=== PATIENT | male | born 1990 | race African-American/Black ===

== ENCOUNTER 2020-06-12 23:23 | Emergency (ER) | payer BC, OTHER ==
--- NOTE | 2020-06-13 01:53 | EDPHYS ---
Physician Documentation [facility] Name: Brannon Melendez Age: 29 yrs Sex: Male : 1990 Arrival Date: 06/12/2020 Time: 23:26 Bed 4 Private MD: ED Physician Robert Amos HPI: 06/12 23:45 This 29 yrs old Black Male presents to ER via Ambulatory with complaints of Fall jmm Injury, RIB PAIN. 23:45 Details of fall: The patient fell from a height, horse. Onset: The symptoms/episode jmm began/occurred acutely, just prior to arrival. Associated injuries: The patient sustained injury to the chest, injury to the abdomen, specifically the right upper quadrant. Associated injuries: The patient sustained injury to the chest, specifically the right lateral anterior chest and right lateral posterior chest. The patient has not experienced similar symptoms in the past. Patient states he fell off a horse. Denies other injury. . Historical: - Allergies: 23:38 No Known Allergies; lp1 - Home Meds: 23:38 None [Active]; lp1 - PMHx: 23:38 None; lp1 - PSHx: 23:38 None; lp1 - Immunization history:: Adult Immunizations up to date. - Social history:: Smoking status: Patient reports the use of cigarette tobacco products, cigars, Reported history of juuling and/or vaping. - Immunization history: Last tetanus immunization: - up to date. ROS: 23:45 Constitutional: Negative for fever, chills, and weight loss, Neck: Negative for injury, jmm pain, and swelling, Cardiovascular: Negative for chest pain, palpitations, and edema, Respiratory: Negative for shortness of breath, cough, wheezing, and pleuritic chest pain. 23:45 Abdomen/GI: Positive for abdominal pain. 23:45 Back: Positive for pain with movement. 23:45 All other systems are negative. Exam: 23:45 Eyes: EOMI, no conjunctival erythema appreciated ENT: Moist Mucus Membranes jmm 23:45 Cardiovascular: Regular rate and rhythm. No edema appreciated Respiratory: Normal respirations, no respiratory distress appreciated 23:45 Skin: General appearance color normal MS/ Extremity: Moves all extremities, no obvious deformities appreciated, no edema noted to the lower extremities Neuro: Awake and alert, normal gait Psych: Behavior is normal, Mood is normal, Patient is cooperative and pleasant 23:45 Constitutional: The patient appears in no acute distress, alert, awake. 23:45 Head/face: Exam is negative for acute changes, covarrubias signs, raccoon eyes. 23:45 Neck: C-spine: appears grossly normal, no vertebral tenderness, no crepitus. 23:45 Chest/axilla: Inspection: normal, Palpation: tenderness, that is moderate, of the right lateral anterior chest and right lateral posterior chest. 23:45 Abdomen/GI: Inspection: abdomen appears normal, Bowel sounds: normal, Palpation: soft, mild abdominal tenderness, in the right upper quadrant. 23:45 Back: pain, is absent, ROM is normal, CVA tenderness, is absent. Vital Signs: 23:39 BP 138 / 79; Pulse 82; Resp 18; Temp 98.7(TE); Pulse Ox 99% on R/A; Weight 117.93 kg lp1 (R); Height 5 ft. 8 in. (172.72 cm); Pain 6/10; 23:39 Body Mass Index 39.53 (117.93 kg, 172.72 cm) lp1 Hussein Coma Score: 06/13 00:03 Eye Response: spontaneous(4). Verbal Response: oriented(5). Motor Response: obeys rv commands(6). Total: 15. Trauma Score (Adult): 00:03 Eye Response: spontaneous(1); Verbal Response: oriented(1); Motor Response: obeys rv commands(2); Systolic BP: > 89 mm Hg(4); Respiratory Rate: 10 to 29 per min(4); Hussein Score: 15; Trauma Score: 12 MDM: 06/12 23:[address] [facility] 06/13 00:52 Data reviewed: vital signs, nurses notes. Transition of care: After a detail discussion megan of the patient's case, care is transferred to Robert Amos MD. 06/12 23:45 Order name: CT Traumagram (Head C Spine CAP W Con) [facility] 06/12 23:45 Order name: Saline Lock; Complete Time: 00:05 megan Administered Medications: No medications were administered Disposition: 04:52 Co-signature as Attending Physician, Robert Amos MD. mh7 Disposition: 06/13/20 01:52 Discharged to Home. Impression: Fall from Horse, Multiple Contusions. - Condition is Stable. - Discharge Instructions: Contusion, [id number], Chest Contusion, [id number]. - Prescriptions for Ibuprofen 800 mg Oral Tablet - take 1 tablet by ORAL route every 8 hours As needed take with food; 15 tablet. - Medication Reconciliation Form, Thank You Letter, Antibiotic Education, Prescription Opioid Use form. - Work release form (06/13/20 12:19). ss - Follow up: Private Physician; When: 1 - 2 days; Reason: Worsening of condition, Recheck today's complaints, Continuance of care, Re-evaluation by your physician. - Problem is new. - Symptoms have improved. Signatures: Dispatcher [employer] EDMS Mario Barreto PA PA jmm Pena, Laura RN RN lp1 Marlnei Singh RN RN Bryon George RN RN rv Holmes, Maurice, MD MD 7 Isabel Can RN ss Corrections: (The following items were deleted from the chart) 02:00 01:52 06/13/2020 01:52 Discharged to Home. Impression: Fall from Horse; Multiple ea Contusions. Condition is Stable. Forms are Medication Reconciliation Form, Thank You Letter, Antibiotic Education, Prescription Opioid Use. Follow up: Private Physician; When: 1 - 2 days; Reason: Worsening of condition, Recheck today's complaints, Continuance of care, Re-evaluation by your physician. Problem is new. Symptoms have improved. mh7
--- NOTE | 2020-06-13 01:53 | ER ---
Nurse's Notes [facility] Name: Brannon Melendez Age: 29 yrs Sex: Male : 1990 Arrival Date: 06/12/2020 Time: 23:26 Bed 4 Private MD: Diagnosis: Fall from Horse;Multiple Contusions Presentation: 06/12 23:36 Chief complaint: Patient states: Thrown off of horse about 2100 last night; Reports lp1 pain to right side of abdomen and chest, states hitting solid ground; Denies hitting head, no LOC, no other complaints. Care prior to arrival: None. 23:36 Acuity: JAN 2 lp1 23:36 Method Of Arrival: Ambulatory lp1 23:39 Coronavirus screen: Client denies travel out of the [place] in the last 14 days. At this lp1 time, the client does not indicate any symptoms associated with coronavirus-19. Ebola Screen: No symptoms or risks identified at this time. Initial Sepsis Screen: Does the patient meet any 2 criteria? No. Patient's initial sepsis screen is negative. Does the patient have a suspected source of infection? No. Patient's initial sepsis screen is negative. Risk Assessment: Do you want to hurt yourself or someone else? Patient reports no desire to harm self or others. Onset of symptoms was June 11, 2020 at 21:00. 06/13 00:03 Mechanism of Injury: Fall from a horse. Trauma event details: Injury occurred in the [facility], Injury occurred: at home. Injury occurred: June 13, 2020 Injury occurred at: 23:00. Trauma Activation: Alert Physician: ED Physician; Name: denisse; Notified At: ; Arrived At: Physician: General Surgeon; Name: ; Notified At: ; Arrived At: Physician: Radiology; Name: ; Notified At: ; Arrived At: Physician: Respiratory; Name: ; Notified At: ; Arrived At: Physician: Lab; Name: ; Notified At: ; Arrived At: Historical: - Allergies: 06/12 23:38 No Known Allergies; lp1 - Home Meds: 23:38 None [Active]; lp1 - PMHx: 23:38 None; lp1 - PSHx: 23:38 None; lp1 - Immunization history:: Adult Immunizations up to date. - Social history:: Smoking status: Patient reports the use of cigarette tobacco products, cigars, Reported history of juuling and/or vaping. - Immunization history: Last tetanus immunization: - up to date. Screenin:39 Abuse screen: Denies threats or abuse. Denies injuries from another. Nutritional lp1 screening: No deficits noted. Tuberculosis screening: No symptoms or risk factors identified. Fall Risk None identified. Primary Survey: 06/13 00:02 NO uncontrolled hemorrhage observed. Breathing/Chest: Respiratory pattern: regular. rv Circulation: Cardiac rhythm: sinus rhythm. Disability Alert. Exposure/Environment: All clothing and personal items were removed. Forensic evidence collection is not deemed to be indicated at this time. Items placed in patient belonging bag. There is no evidence of uncontrolled external bleeding. A warming method has been applied: A warm blanket has been provided to the patient. 01:00 Reassessment Airway Airway Patent Breathing/Chest Respiratory pattern Regular ea Respiratory effort Spontaneous Unlabored Disability Alert. Assessment: 00:01 General: Appears uncomfortable, Behavior is calm, cooperative. Pain: Complains of pain rv in rib pain. Neuro: Level of Consciousness is awake, alert, obeys commands, Oriented to person, place, time, situation. Cardiovascular: Patient's skin is warm and dry. Respiratory: Airway is patent Respiratory effort is even, unlabored, Breath sounds are clear bilaterally. Derm: Skin is intact. 00:20 Reassessment: Patient and/or family updated on plan of care and expected duration. Pain ea level reassessed. Patient is alert, oriented x 3, equal unlabored respirations, skin warm/dry/pink. Pt taken to CT. 00:35 Reassessment: Patient and/or family updated on plan of care and expected duration. Pain ea level reassessed. Patient is alert, oriented x 3, equal unlabored respirations, skin warm/dry/pink. Returned from CT. 01:59 Reassessment: Patient and/or family updated on plan of care and expected duration. Pain ea level reassessed. Patient is alert, oriented x 3, equal unlabored respirations, skin warm/dry/pink. Discharge instruction given to patient, verbalized the understanding of instruction. Pt left ED ambulatory tolerating well. Vital Signs: 06/12 23:39 BP 138 / 79; Pulse 82; Resp 18; Temp 98.7(TE); Pulse Ox 99% on R/A; Weight 117.93 kg lp1 (R); Height 5 ft. 8 in. (172.72 cm); Pain 6/10; 23:39 Body Mass Index 39.53 (117.93 kg, 172.72 cm) lp1 Hussein Coma Score: 06/13 00:03 Eye Response: spontaneous(4). Verbal Response: oriented(5). Motor Response: obeys rv commands(6). Total: 15. Trauma Score (Adult): 00:03 Eye Response: spontaneous(1); Verbal Response: oriented(1); Motor Response: obeys rv commands(2); Systolic BP: > 89 mm Hg(4); Respiratory Rate: 10 to 29 per min(4); Green Score: 15; Trauma Score: 12 ED Course: 06/12 23:26 Patient arrived in ED. cf2 23:38 Triage completed. lp1 23:39 Arm band placed on right wrist. lp1 23:43 Mario Barreto PA is PHCP. [facility] 23:43 Robert Amos MD is Attending Physician. [facility] 23:50 Inserted saline lock: in right antecubital area, using aseptic technique. rv 06/13 00:01 Bryon Canales, SIMONE is Primary Nurse. rv 00:03 Patient has correct armband on for positive identification. Placed in gown. Bed in low rv position. Call light in reach. gambling monitor on. Pulse ox on. NIBP on. 00:03 Patient maintains SpO2 saturation greater than 95% on room air. rv 00:03 Thermoregulation: warm blanket given to patient. rv 00:44 CT Traumagram (Head C Spine CAP W Con) In Process Unspecified. EDMS 01:58 No provider procedures requiring assistance completed. IV discontinued, intact, ea bleeding controlled, No redness/swelling at site. Pressure dressing applied. Administered Medications: No medications were administered Intake: :59 PO: 0ml; Total: 0ml. ea Outcome: 01:52 Discharge ordered by . mhMic 01:59 Discharged to home ambulatory. ea 01:59 Condition: stable 01:59 Discharge instructions given to patient, Instructed on discharge instructions, follow up and referral plans. medication usage, Demonstrated understanding of instructions, follow-up care, medications, Prescriptions given X 1. 01:59 Patient's length of stay was not longer than 2 hours. ea 02:00 Patient left the ED. ea Signatures: Dispatcher [employer] EDMS Mario Barreto PA PA jmm Pena, Laura, RN RN lp1 Marleni Singh RN RN Bryon George RN RN Zac Wu 2 Robert Amos MD MD mh7
[2020-06-13 02:05] VITALS: BP 138/79; TEMP 98.7; O2SAT 99
--- NOTE | 2020-06-13 11:51 | RAD REPORT ---
EXAM DESCRIPTION: CT - Head C Spine Loi Rogers - 06/13/2020 8:59 am CLINICAL HISTORY: Fall off horse, right sided pain COMPARISON: None. TECHNIQUE: CT HEAD AND CERVICAL SPINE WITHOUT CONTRAST AND CT CHEST ABDOMEN PELVIS WITH CONTRAST on 06/12/2020 11:45 PM FOREIGN EXCHANGE STUDENT COORDINATOR This exam was performed according to our departmental dose-optimization program, which includes autom ated exposure control, adjustment of the mA and/or kV according to patient size and/or use of iterati ve reconstruction technique. FINDINGS: Brain: There is no acute hemorrhage, mass effect or midline shift. Castillo-white differentiat ion is preserved. There is no hydrocephalus. There is no significant volume loss for age. The calvarium is intact. Orbits and globes are unremarkable. The paranasal sinuses are clear. Mastoid air cells are clear. Cervical Spine: There is no acute fracture. Alignment is anatomic. Disc spaces are maintained. Vertebral body heights are preserved. Soft tissues are unremarkable. Vascular: Thoracic aorta is normal in course and caliber without aneurysm or dissection. Pulmonary ar teries are adequately opacified without acute or chronic filling defects. Abdominal aorta is normal i n course and caliber without aneurysm. Pelvic arteries are patent without aneurysm or occlusion. Chest: The heart is normal in size. There is no pericardial effusion. Intrathoracic lymph nodes are n ot enlarged. There is no pleural effusion, pleural thickening or pneumothorax. Central airways are patent. There i s minimal bibasilar atelectasis. Abdomen: There is a metallic BB adjacent to the right lobe of the liver. There is no biliary dilatati on. Gallbladder is decompressed. The pancreas and spleen are normal in appearance. The adrenal glands and kidneys are unremarkable. There is no free air. There is no retroperitoneal adenopathy. Pelvis: There is no bowel obstruction. Urinary bladder is unremarkable. There is no free fluid. Appen stefan is normal. Skeleton: There are no acute osseous findings. No suspicious bony lesions. IMPRESSION: No definite posttraumatic findings. Electronically signed by: Watson Delcid MD 06/13/2020 1:13 AM FOREIGN EXCHANGE STUDENT COORDINATOR Due to temporary technical issues with the PACS/Fluency reporting system, reports are being signed by the in house radiologists without review as a courtesy to insure prompt reporting. The interpreting radiologist is fully responsible for the content of the report.
== END 2020-06-13 02:00 | disposition home or self-care (01) ==
LOC: ER 23:23
DX: T14.8XXA Other injury of unspecified body region, initial encounter (principal); V80.010A Animal-rider injured by fall from or being thrown from horse in noncollision accident, initial encounter; F17.210 Nicotine dependence, cigarettes, uncomplicated; F17.290 Nicotine dependence, other tobacco product, uncomplicated
CPT/HCPCS: 70450; 72125; 71260; 74177; 99285; Q9967; G0390

== ENCOUNTER 2023-09-03 12:34 | Emergency (ER) | payer OTHER ==
--- OUTSIDE RECORDS SUMMARY | 2023-09-03 12:38 | XMS REPORT | Continuity of Care Document ---
Author Name Unknown Address [address] [place] [address]. [address] [employer] Address [address] [place] [address]. 1 [address] [place] [address] Care Team Providers Care Accountant Machine Processing Name Role Phone RAGHAVENDRA GALAN Attending Clinician Unavailable SARA TAMAYO Attending Clinician Unavailable RAGHAVENDRA GALAN Admitting Clinician Unavailable Encounters Start Date/Time End Date/Time Encounter Type Admission Type Attending Clinicians Care Facility Care Department Encounter ID Source 2006-06-16 16:38:00 2006-06-17 11:00:00 Inpatient TR RAGHAVENDRA GALAN [facility] [id number] [facility] 2004-06-18 19:43:00 2004-06-18 22:35:00 Emergency ER SARA TAMAYO [facility] [id number] [facility]
--- NOTE | 2023-09-03 13:32 | RAD REPORT ---
EXAM DESCRIPTION: RAD - Ankle Left 3 View - 09/03/2023 1:21 pm CLINICAL HISTORY: PAIN COMPARISON: No comparisons FINDINGS: Mild soft tissue swelling is seen adjacent to the lateral malleolus. No acute fracture or dislocation seen.
--- NOTE | 2023-09-03 13:38 | ER ---
Nurse's Notes [facility] Name: Brannon Melendez Age: 33 yrs Sex: Male : 1990 Arrival Date: 09/03/2023 Time: 12:34 Bed 5 Private MD: Diagnosis: Sprain of unspecified ligament of left ankle, initial encounter Presentation: 09/02 12:47 Chief complaint: Patient states: Left ankle pain, states he rolled his ankle about 2.5 nj1 weeks ago, wants imaging on it. Has taken ibuprofen as needed. 12:47 Method Of Arrival: Ambulatory [facility] 12:47 Coronavirus screen: Vaccine status: Patient reports receiving the 2nd dose of the covid nj1 vaccine. Ebola Screen: Patient denies travel to an Ebola-affected area in the 21 days before illness onset. Initial Sepsis Screen: Does the patient meet any 2 criteria? No. Patient's initial sepsis screen is negative. Does the patient have a suspected source of infection? No. Patient's initial sepsis screen is negative. Risk Assessment: Do you want to hurt yourself or someone else? Patient reports no desire to harm self or others. Onset of symptoms was August 2023. 12:47 Acuity: JAN 4 nj1 Historical: - Allergies: 12:54 No Known Allergies; nj1 - PMHx: 12:54 None; nj1 - Immunization history:: Client reports receiving the 2nd dose of the Covid vaccine. - Infectious Disease History:: Denies. - Social history:: Smoking status: Patient reports the use of cigarette tobacco products, denies chronic smoking, but will smoke occasionally. Screenin:56 [facility] ED Fall Risk Assessment (Adult) History of falling in the last 3 months, ko1 including since admission No falls in past 3 months (0 pts) Confusion or Disorientation No (0 pts) Intoxicated or Sedated No (0 pts) Impaired Gait No (0 pts) Mobility Assist Device Used No (0 pt) Altered Elimination No (0 pt) Score/Fall Risk Level 0 - 2 = Low Risk Oriented to surroundings, Maintained a safe environment, Educated pt \T\ family on fall prevention, incl call for assistance when getting out of bed, Assessed \T\ reinforced patient's understanding of fall precautions, Provided non-skid footwear, Hourly rounding (assess needs \T\ fall precautionary measures) done, Used ambulatory aids as needed (educated on \T\ assisted with), Used gait belt as appropriate. Abuse screen: Denies threats or abuse. Denies injuries from another. Nutritional screening: No deficits noted. Tuberculosis screening: No symptoms or risk factors identified. Assessment: 12:56 General: Appears in no apparent distress. Behavior is calm, cooperative, appropriate ko1 for age. Pain: Complains of pain in left lateral ankle. Neuro: No deficits noted. Cardiovascular: No deficits noted. Respiratory: No deficits noted. GI: No deficits noted. : No deficits noted. EENT: No deficits noted. Derm: No deficits noted. Musculoskeletal: Reports pain in left lateral ankle. Vital Signs: 12:47 BP 132 / 94; Pulse 73; Resp 18; Temp 97.4(TE); Pulse Ox 99% on R/A; Weight 120.2 kg; nj1 Height 5 ft. 8 in. ; Pain 0/10; 13:14 BP 130 / 74; Pulse 70; Resp 15; Pulse Ox 99% ; ko1 12:47 Body Mass Index 40.29 (120.20 kg, 172.72 cm) nj1 12:47 Pain Scale: Adult [facility] ED Course: 12:37 Patient arrived in ED. mr 12:43 Liang Kim MD is Attending Physician. rt 12:52 Siria Salamanca RN is Primary Nurse. ko1 12:54 Triage completed. nj1 12:54 Arm band placed on right wrist. nj1 12:56 Patient has correct armband on for positive identification. Bed in low position. Call ko1 light in reach. Side rails up X2. Pulse ox on. NIBP on. Door closed. Noise minimized. Lights dimmed. Warm blanket given. 12:56 No provider procedures requiring assistance completed. ko1 13:23 Ankle Left 3 View XRAY In Process Unspecified. EDMS 14:00 Provided Education on: na. ko1 14:00 Patient did not have IV access during this emergency room visit. ko1 Administered Medications: No medications were administered Medication: 12:56 VIS not applicable for this client. ko1 Outcome: 13:37 Discharge ordered by . rt 14:00 Discharged to home ambulatory, ko1 14:00 Condition: stable 14:00 Discharge instructions given to patient, Instructed on discharge instructions, follow up and referral plans. Demonstrated understanding of instructions, follow-up care, 14:01 Patient left the ED. ko1 Signatures: Dispatcher [employer] EDMS Kaye Vallejo, Reg Reg mr Siria Salamanca, RN RN ko1 Liang Kim MD MD rt Arielle Arriola RN RN nj1
--- NOTE | 2023-09-03 13:38 | EDPHYS ---
Physician Documentation [facility] Name: Brannon Melendez Age: 33 yrs Sex: Male : 1990 Arrival Date: 09/03/2023 Time: 12:34 Bed 5 Private MD: ED Physician Liang Kim HPI: 09/02 13:38 This 33 yrs old Black Male presents to ER via Ambulatory with complaints of Ankle rt Injury. 13:38 Patient presents to the ED with left ankle pain for over 2 weeks. Patient states that rt he rolled it playing basketball. States that the pain continues to improve but is still somewhat present. Symptoms are moderate severity, no other aggravating or elevating factors.. Historical: - Allergies: 12:54 No Known Allergies; nj1 - PMHx: 12:54 None; nj1 - Immunization history:: Client reports receiving the 2nd dose of the Covid vaccine. - Infectious Disease History:: Denies. - Social history:: Smoking status: Patient reports the use of cigarette tobacco products, denies chronic smoking, but will smoke occasionally. ROS: 13:38 Constitutional: Negative for fever, chills, and weight loss, Cardiovascular: Negative rt for chest pain, palpitations, and edema, Respiratory: Negative for shortness of breath, cough, wheezing, and pleuritic chest pain, Abdomen/GI: Negative for abdominal pain, nausea, vomiting, diarrhea, and constipation, Skin: Negative for injury, rash, and discoloration, Neuro: Negative for headache, weakness, numbness, tingling, and seizure, 13:38 MS/extremity: Positive for pain, swelling, Exam: 13:38 Constitutional: This is a well developed, well nourished patient who is awake, alert, rt and in no acute distress. Head/Face: Normocephalic, atraumatic. Chest/axilla: Normal chest wall appearance and motion. Nontender with no deformity. No lesions are appreciated. Cardiovascular: Regular rate and rhythm with a normal S1 and S2. No gallops, murmurs, or rubs. Normal PMI, no JVD. No pulse deficits. Respiratory: Lungs have equal breath sounds bilaterally, clear to auscultation and percussion. No rales, rhonchi or wheezes noted. No increased work of breathing, no retractions or nasal flaring. Abdomen/GI: Soft, non-tender, with normal bowel sounds. No distension or tympany. No guarding or rebound. No evidence of tenderness throughout. 13:38 Musculoskeletal/extremity: Minimal swelling, tenderness posterior to the lateral malleolus on the left ankle, no other swelling, deformity, tenderness to palpation, pulses, motor, sensation are intact. Vital Signs: 12:47 BP 132 / 94; Pulse 73; Resp 18; Temp 97.4(TE); Pulse Ox 99% on R/A; Weight 120.2 kg; nj1 Height 5 ft. 8 in. ; Pain 0/10; 13:14 BP 130 / 74; Pulse 70; Resp 15; Pulse Ox 99% ; ko1 12:47 Body Mass Index 40.29 (120.20 kg, 172.72 cm) nj1 12:47 Pain Scale: Adult nj1 MDM: 12:53 Patient medically screened. rt 13:38 Differential diagnosis: fracture, sprain. Data reviewed: vital signs, nurses notes, rt radiologic studies. Independent interpretation of the following test(s) in the Emergency Department X-Ray: My interpretation is No fracture seen on my interpretation of x-ray images. Counseling: I had a detailed discussion with the patient and/or guardian regarding the historical points, exam findings, and any diagnostic results supporting the discharge/admit diagnosis, radiology results, the need for outpatient follow up, to return to the emergency department if symptoms worsen or persist or if there are any questions or concerns that arise at home. 09/02 12:56 Order name: Ankle Left 3 View XRAY; Complete Time: 13:35 rt Administered Medications: No medications were administered Disposition Summary: 09/03/23 13:37 Discharge Ordered Notes: Location: Home rt Problem: new rt Symptoms: are unchanged rt Condition: Stable rt Diagnosis - Sprain of unspecified ligament of left ankle, initial encounter rt Followup: rt - With: Private Physician - When: 5 - 6 days - Reason: Discharge Instructions: - Discharge Summary Sheet rt - Ankle Sprain rt Forms: - Medication Reconciliation Form rt - Thank You Letter rt - Antibiotic Education rt - Prescription Opioid Use rt - Patient Portal Instructions rt - Leadership Thank You Letter rt Signatures: Dispatcher [employer] Liang Leal MD MD rt Arielle Arriola RN RN nj1
[2023-09-03 19:12] VITALS: TEMP 97.4; O2SAT 99
[2023-09-03 19:42] VITALS: BP 130/74
== END 2023-09-03 14:01 | disposition home or self-care (01) ==
LOC: ER 12:34
DX: S93.402A Sprain of unspecified ligament of left ankle, initial encounter (principal); F17.210 Nicotine dependence, cigarettes, uncomplicated
CPT/HCPCS: 99283